=== PATIENT | female | born 1995 | race Caucasian/White ===

== ENCOUNTER 2021-02-24 12:04 | Emergency (ER) | payer OTHER, SELFPAY ==
[2021-02-24 13:03] LABS: Urine Blood Negative (Negative); Urine Glucose Negative (Negative); Urine Protein Negative (Negative); Urine Specific Gravity 1.025 (1.005-1.030); Urine pH 7.5 (5.0-7.0)
[2021-02-24 13:13] LABS: Absolute Lymphocytes (CBC) 2.4 K/uL (0.7-4.9); Basophils % 0.5 % (0-1.3); Hematocrit 35.9 % (36.0-45.0); Lymphocytes % 25.9 % (15.3-44.8); MPV 8.6 fL (7.6-11.3); RBC Red Blood Cell Count 4.33 M/uL (3.86-4.86)
[2021-02-24 13:25] LABS: ALT/SGPT 20 U/L (12-78); AST/SGOT 9 U/L (15-37); Albumin 3.6 g/dL (3.4-5.0); Alkaline Phosphatase 82 U/L (45-117); BUN Blood Urea Nitrogen 8 mg/dL (7-18); Bicarbonate 26 mmol/L (21-32); Bilirubin Direct < 0.1 mg/dL (0-0.2); Bilirubin Total 0.2 mg/dL (0.2-1.0); Glucose Level 100 mg/dL (74-106); Lipase 402 U/L (73-393); Potassium 3.9 mmol/L (3.5-5.1); Protein, Total 7.1 g/dL (6.4-8.2); Sodium Level 142 mmol/L (136-145)
--- NOTE | 2021-02-24 13:33 | RAD REPORT ---
EXAM DESCRIPTION: US - Abdomen Exam Limited - 02/24/2021 1:23 pm CLINICAL HISTORY: ABD PAIN COMPARISON: No comparisons FINDINGS: The gallbladder demonstrates multiple shadowing gallstones. No pericholecystic fluid or ga llbladder wall thickening. The common bile duct is normal measuring 4 mm. The liver demonstrates no findings of intrahepatic biliary dilatation. IMPRESSION: Cholelithiasis.
--- NOTE | 2021-02-24 13:59 | RAD REPORT ---
EXAM DESCRIPTION: CTAbdomen Pelvis W Contrast - 02/24/2021 1:48 pm CLINICAL HISTORY: Abdominal pain. ABD PAIN COMPARISON: Abdomen Exam Limited dated 02/24/2021 TECHNIQUE: Biphasic CT imaging of the abdomen and pelvis was performed with 100 ml non-ionic IV cont rast. All CT scans are performed using dose optimization technique as appropriate and may include automated exposure control or mA/KV adjustment according to patient size. FINDINGS: The lung bases are clear. Gallbladder is largely contracted. The liver, spleen, pancreas, adrenal glands and kidneys are within normal limits. No bowel obstruction, free air, intra-abdominal free fluid or abscess. Moderate stool is present thro ughout the colon. The appendix is normal. No evidence of significant lymphadenopathy. Trace pelvic free fluid. No suspicious bony findings. IMPRESSION: Contracted gallbladder limiting assessment. No significant biliary dilatation seen. Trace pelvic free fluid, probably physiologic.
--- NOTE | 2021-02-24 14:38 | EDPHYS ---
Physician Documentation [facility] Name: Griffin Balbuena Age: 25 yrs Sex: Female : 1995 Arrival Date: 02/24/2021 Time: 12:07 Bed Waiting Private MD: ED Physician Christiano Ng HPI: 02/24 17:15 This 25 yrs old Female presents to ER via Ambulatory with complaints of kb Abdominal Pain, Back Pain. 17:15 The patient presents with abdominal pain in the upper abdomen. The patient has not kb experienced similar symptoms in the past. The patient has not recently seen a physician. Pt states "I think my gallbladder is going out." Reports upper abdominal pain that radiates to right shoulder and back. States it feels like a spasm at times. Pain is intermittent.. 17:16 Onset: The symptoms/episode began/occurred 4 day(s) ago. The symptoms radiate to right kb back, the right shoulder. Associated signs and symptoms: Pertinent positives: nausea, vomiting, and diarrhea. The symptoms are described as intermittent. Modifying factors: The symptoms are alleviated by nothing, the symptoms are aggravated by nothing. Severity of pain: At its worst the pain was moderate in the emergency department the pain has resolved. 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 - Social history:: Smoking status: Patient reports the use of cigarette tobacco products, smokes one-half pack cigarettes per day, Patient uses alcohol, occasionally. ROS: 17:17 Constitutional: Negative for fever, chills, and weight loss. kb 17:17 Abdomen/GI: Positive for abdominal pain, Negative for nausea, vomiting, and diarrhea. 17:17 All other systems are negative. Exam: 17:17 Constitutional: This is a well developed, well nourished patient who is awake, alert, kb and in no acute distress. Head/Face: Normocephalic, atraumatic. ENT: Moist Mucous membranes Cardiovascular: Regular rate and rhythm with a normal S1 and S2. No gallops, murmurs, or rubs. No pulse deficits. Respiratory: Respirations even and unlabored. No increased work of breathing, no retractions or nasal flaring. Abdomen/GI: Soft, non-tender. No distention Skin: Warm, dry with normal turgor. Normal color. MS/ Extremity: Pulses equal, no cyanosis. Neurovascular intact. Full, normal range of motion. Neuro: Awake and alert, GCS 15, oriented to person, place, time, and situation. Moves all extremities. Normal gait. Psych: Awake, alert, with orientation to person, place and time. Behavior, mood, and affect are within normal limits. Vital Signs: 12:39 BP 119 / 74; Pulse 78; Resp 20; Temp 98.4(O); Pulse Ox 100% on R/A; Weight 63.5 kg (R); kg Height 5 ft. 1 in. (154.94 cm); Pain 7/10; 12:39 Body Mass Index 26.45 (63.50 kg, 154.94 cm) kg MDM: 12:43 Patient medically screened. kb 17:15 Data reviewed: vital signs, nurses notes. Data interpreted: Pulse oximetry: on room air kb is 100 %. Interpretation: normal. Counseling: I had a detailed discussion with the patient and/or guardian regarding: the historical points, exam findings, and any diagnostic results supporting the discharge/admit diagnosis, lab results, radiology results, the need for outpatient follow up, a family practitioner, to return to the emergency department if symptoms worsen or persist or if there are any questions or concerns that arise at home. 02/24 12:44 Order name: Basic Metabolic Panel 02/24 12:44 Order name: CBC with Diff 02/24 12:44 Order name: Hepatic Function kb 02/24 12:44 Order name: Lipase; Complete Time: 13:26 kb 02/24 12:44 Order name: IV Saline Lock 02/24 12:44 Order name: Labs collected and sent 02/24 12:44 Order name: US Abdomen Limited; Complete Time: 13:35 kb 02/24 12:44 Order name: Basic Metabolic Panel; Complete Time: 13:26 EDMS 02/24 12:44 Order name: CBC with Automated Diff; Complete Time: 13:21 EDOH 02/24 12:44 Order name: Liver (Hepatic) Function; Complete Time: 13:26 EDMS 02/24 13:03 Order name: Urine Dipstick-Ancillary; Complete Time: 13:06 EDMS 02/24 13:35 Order name: CT Abd/Pelvis - IV Contrast Only; Complete Time: 14:00 kb 02/24 12:44 Order name: Urine Dipstick-Ancillary (obtain specimen) kb Administered Medications: No medications were administered Disposition: 02/25 08:16 Co-signature as Attending Physician, Christiano Ng MD I agree with the assessment and callie plan of care. Disposition Summary: 02/24/21 14:37 Discharge Ordered Location: Home kb Condition: Stable kb Diagnosis - Other cholelithiasis without obstruction kb Followup: kb - With: Emergency Department - When: As needed - Reason: Worsening of condition Followup: kb - With: Private Physician - When: 2 - 3 days - Reason: Recheck today's complaints, Continuance of care, Re-evaluation by your physician Discharge Instructions: - Discharge Summary Sheet kb - Cholelithiasis, [id number] kb Forms: - Medication Reconciliation Form kb - Thank You Letter kb - Antibiotic Education kb - Prescription Opioid Use kb Prescriptions: - Zofran 4 mg Oral Tablet - take 1 tablet by ORAL route every 6 hours As needed; 20 tablet; Refills: 0, kb Product Selection Permitted - dicyclomine 20 mg Oral Tablet - take 1 tablet by ORAL route every 6 hours As needed; 20 tablet; Refills: 0, kb Product Selection Permitted Signatures: Dispatcher [employer] EDNatalia Jimenez, STAMP REDEMPTION CLERK-C STAMP REDEMPTION CLERK-Christiano Tello MD MD cha Graham, Kristen, RN RN kg Corrections: (The following items were deleted from the chart) 02/24 12:45 12:44 PSHx: Exploratory laparotomy; kg kg 13:42 12:44 Influenza Screen (A \\T\\ B)+BA.LAB.BRZ ordered. EDMS EDMS 13:43 12:44 CORONAVIRUS+MR.LAB.BRZ ordered. EDMS EDMS
--- NOTE | 2021-02-24 14:38 | ER ---
Nurse's Notes [facility] Name: Griffin Balbuena Age: 25 yrs Sex: Female : 1995 Arrival Date: 02/24/2021 Time: 12:07 Bed Waiting Private MD: Diagnosis: Other cholelithiasis without obstruction Presentation: 02/24 12:39 Chief complaint: Patient states: Pt stated, " I've had diarrhea since Sunday, pain in kg my mid abdomen and goes to my back.". Coronavirus screen: Vaccine status: Patient reports being unvaccinated. Ebola Screen: Patient negative for fever greater than or equal to 101.5 degrees Fahrenheit, and additional compatible Ebola Virus Disease symptoms Patient denies exposure to infectious person. Patient denies travel to an Ebola-affected area in the 21 days before illness onset. No symptoms or risks identified at this time. Initial Sepsis Screen: Does the patient meet any 2 criteria? No. Patient's initial sepsis screen is negative. Does the patient have a suspected source of infection? No. Patient's initial sepsis screen is negative. Risk Assessment: Do you want to hurt yourself or someone else? Patient reports no desire to harm self or others. Onset of symptoms was February 21, 2021. 12:39 Method Of Arrival: Ambulatory kg 12:39 Acuity: NHAN 3 kg Triage Assessment: 12:44 General: Appears in no apparent distress. Behavior is calm, cooperative, appropriate kg for age, quiet. Pain: Denies pain. GI: Reports lower abdominal pain, upper abdominal pain, diarrhea. 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 - Social history:: Smoking status: Patient reports the use of cigarette tobacco products, smokes one-half pack cigarettes per day, Patient uses alcohol, occasionally. Screenin:46 Abuse screen: Denies threats or abuse. Denies injuries from another. Nutritional kg screening: No deficits noted. Tuberculosis screening: No symptoms or risk factors identified. Fall Risk None identified. Assessment: 14:51 General: Appears in no apparent distress. comfortable. Neuro: Level of Consciousness is ss awake, alert. Respiratory: Respiratory effort is even, unlabored. 14:51 GI: Bowel sounds present X 4 quads. present in right upper quadrant, left upper kg quadrant, right lower quadrant and left lower quadrant Abd is soft and non tender. Vital Signs: 12:39 BP 119 / 74; Pulse 78; Resp 20; Temp 98.4(O); Pulse Ox 100% on R/A; Weight 63.5 kg (R); kg Height 5 ft. 1 in. (154.94 cm); Pain 7/10; 12:39 Body Mass Index 26.45 (63.50 kg, 154.94 cm) kg ED Course: 12:07 Patient arrived in ED. mr 12:09 Natail[facility] Angel [facility]-C [facility]. kb 12:09 Christiano Ng MD is Attending Physician. kb 12:44 Triage completed. kg 12:44 Arm band placed on right wrist. kg 12:46 Patient has correct armband on for positive identification. kg 13:23 US Abdomen Limited In Process Unspecified. EDMS 13:48 CT Abd/Pelvis - IV Contrast Only In Process Unspecified. EDMS 14:51 No provider procedures requiring assistance completed. IV discontinued, intact, kg bleeding controlled, No redness/swelling at site. Pressure dressing applied. Administered Medications: No medications were administered Outcome: 14:37 Discharge ordered by . kb 14:51 Discharged to home ambulatory. ss 14:51 Condition: good 14:51 Discharge instructions given to patient, Instructed on discharge instructions, follow up and referral plans. medication usage, Demonstrated understanding of instructions, follow-up care, medications, Prescriptions given X 2. 14:51 Discharged to home ambulatory. kg 14:51 Condition: good 14:51 Discharge instructions given to patient, Instructed on discharge instructions, follow up and referral plans. medication usage, Demonstrated understanding of instructions, follow-up care, medications, Prescriptions given X 2. 14:52 Patient left the ED. ss Signatures: Dispatcher [employer] EDMS Natalia Angel FNP-C FNP-Betty Judy Johns Cassie Pelaez, RN RN ss Maria Dolores Conde, KATHY RN kg Corrections: (The following items were deleted from the chart) 12:45 12:44 PSHx: Exploratory laparotomy; kg kg 14:52 14:51 No provider procedures requiring assistance completed. ss ss
[2021-02-24 15:02] LABS: SARS-COV-2 RT PCR NEGATIVE (NEGATIVE)
[2021-02-24 15:17] VITALS: BP 119/74; TEMP 98.4; O2SAT 100
== END 2021-02-24 14:52 | disposition home or self-care (01) ==
LOC: ER 12:04
DX: K80.80 Other cholelithiasis without obstruction (principal); F17.210 Nicotine dependence, cigarettes, uncomplicated
CPT/HCPCS: 0240U; 36415; 74177; 76705; 80048; 80076; 81003; 83690; 85025; 99283; Q9967